=== PATIENT | female | born 1970 | race Native Hawaiian/Other Pacific Islander ===

== ENCOUNTER 2022-12-05 16:34 | Emergency (ER) | payer OTHER ==
[2022-12-05 16:51] VITALS: BP 102/71; PULSE 88; RESP 16; TEMP 97.9; BMI 22.6
[2022-12-05] MEDS ORDERED: ASPIRIN 81 MG CHEWABLE TABLETS PO ONE (17:26)
[2022-12-05] MEDS ORDERED: ASPIRIN 81 MG CHEWABLE TABLETS ONE (17:39)
[2022-12-05 18:19] LABS: BASO % 0.8 % (0-2.0); EOS % 2.3 % (0-4.5); HEMATOCRIT 40.1 % (32.4-45.2); HEMOGLOBIN 13.6 GM/dL (10.7-15.3); LYMPH % 29.8 % (8-40); MCH 28.6 pg (25.7-33.7); MCHC 33.9 g/dl (32.0-36.0); MEAN CELL VOLUME 84.5 fl (80-96); MEAN PLT VOLUME 7.9 fl (7.5-11.1); MONO % 7.5 % (3.8-10.2); NEUT % 59.6 % (42.8-82.8); PLATELET COUNT 356 10^3/uL (134-434); RBC 4.75 M/mm3 (3.60-5.2); RDW 13.7 % (11.6-15.6); WHITE BLOOD COUNT 7.6 K/mm3 (4.0-10.0)
[2022-12-05 18:26] LABS: INR 1.1 (0.83-1.09); PROTHROMBIN TIME (PATIENT) 12.7 SEC (9.7-13.0)
[2022-12-05 18:28] LABS: ACTIVATED PTT 32.2 SECONDS (25.2-36.5)
[2022-12-05 18:31] LABS: POTASSIUM 3.9 mmol/L (3.5-5.1)
[2022-12-05 18:35] LABS: BLOOD UREA NITROGEN 15.7 mg/dL (7-18); CALCIUM 9.1 mg/dL (8.5-10.1)
[2022-12-05 18:38] LABS: CREATININE 0.6 mg/dL (0.55-1.3)
[2022-12-05 18:40] LABS: BILIRUBIN,TOTAL 0.4 mg/dL (0.2-1); TOT PROT 7.5 g/dl (6.4-8.2)
== END 2022-12-05 21:24 | disposition home or self-care (01) ==
LOC: JER 16:34
DX: R07.89 Other chest pain (principal); R20.2 Paresthesia of skin
CPT/HCPCS: 36415; 71046-TC-FY; 80053; 84484; 85025; 85610; 85730; 93005; 93010; 99285-25

== ENCOUNTER 2023-04-10 04:39 | Day surgery (SDC) | payer OTHER ==
[2023-04-08 14:05] VITALS: BMI 22.1
[2023-04-10] MEDS ORDERED: LIDOCAINE HCL 2% JELLY 11 ML TP ONE (09:30)
[2023-04-10] MEDS ORDERED: LIDOCAINE HCL 2% JELLY 10 ML CARTRIDGE TP ONE (10:58)
[2023-04-10 11:15] VITALS: TEMP 98
[2023-04-10] MEDS ORDERED: oxyCODONE HCL 5 MG TABLET PO ONE (11:30)
[2023-04-10] MEDS ORDERED: ACETAMINOPHEN 325 MG TABLET (FP) PO ONE (11:30)
[2023-04-10] MEDS ORDERED: ACETAMINOPHEN 325 MG TABLET (FP) ONE (11:31)
[2023-04-10] MEDS ORDERED: oxyCODONE HCL 5 MG TABLET ONE (11:32)
[2023-04-10 13:18] VITALS: RESP 14
[2023-04-10 13:21] VITALS: BP 105/70; PULSE 65
== END 2023-04-10 12:10 | disposition home or self-care (01) ==
LOC: JASU-ENDO 04:39
PROVIDERS: ATTEND Internal Medicine Gastroenterology
PROC: 06LY8CC Occlusion of Hemorrhoidal Plexus with Extraluminal Device, Via Natural or Artificial Opening Endoscopic (ICD-10-PCS; principal; 2023-04-10 10:00)
DX: K64.8 Other hemorrhoids (principal)

== ENCOUNTER 2024-06-09 04:24 | Day surgery (SDC) | payer OTHER ==
[2024-05-31 09:44] VITALS: BMI 22.3
[2024-06-09 09:22] VITALS: RESP 16; TEMP 97.7
[2024-06-09 10:06] VITALS: BP 103/65; PULSE 70
== END 2024-06-09 10:00 | disposition home or self-care (01) ==
LOC: JASU-ENDO 04:24
PROVIDERS: ATTEND Internal Medicine Gastroenterology
PROC: 0DJD8ZZ Inspection of Lower Intestinal Tract, Via Natural or Artificial Opening Endoscopic (ICD-10-PCS; principal; 2024-06-09 09:00)
DX: Z12.11 Encounter for screening for malignant neoplasm of colon (principal); K64.8 Other hemorrhoids